=== PATIENT | male | born 1985 | race African-American/Black ===

== ENCOUNTER 2021-11-15 00:54 | Observation (INO) ==
[2021-11-15] MEDS ORDERED: PIPERACILLIN/TAZOBACTAM 3,375 MG in SODIUM CHLORIDE 0.9% 100 ML IV STA (01:13)
[2021-11-15] MEDS ORDERED: MORPHINE 2 MG/1 ML SYRINGE IV PRN (01:15)
[2021-11-15] MEDS ORDERED: ONDANSETRON 4 MG/2 ML VIAL IV PRN (01:15)
[2021-11-15] MEDS: DEXTROSE 5% NACL 0.45% 1,000 ML IV SCH ×3 (03:06→17:46)
[2021-11-15 06:20] LABS: Basophils % 0.2 % (0.0-0.8); Eosinophils # 0.1 10*3/uL (0.0-0.87); Eosinophils % 0.4 % (0.00-10.9); Hematocrit 36.1 VOL% (42.0-52.0); Hemoglobin 12.4 GM/DL (14.0-18.0); Immature Granulocytes % 0.5 %; Immature Granulocytes Absolute 0.08 #; Lymphocytes # 1.7 10*3/uL (1.4-4.0); Lymphocytes % 11.4 % (21.2-54.2); Mean Corpuscular HGB Conc 34.3 GM/DL (32-36); Mean Corpuscular Volume 91.2 FL (87-102); Mean Platelet Volume 9.6 FL (9.6-12.0); Monocytes # 1.1 10*3/uL (0.11-0.8); Monocytes % 7.6 % (1.7-12.7); Neutrophils % 79.9 % (38.7-73.9); Platelet Count 254 T/CUMM (130-400); Red Blood Count 3.96 MC/CUMM (3.8-5.5); Red Cell Distribution Width 13.5 % (9.3-17.3)
[2021-11-15 06:48] LABS: Albumin 3.2 G/DL (3.4-5.0); Bilirubin,Total 1.6 MG/DL (0.20-1.00); Calcium 8.5 MG/DL (8.5-10.1); Osmolality,Calculated 281.3 MOS/KG (273-304); Potassium 3.8 MMOL/L (3.5-5.1); Total Protein 6.1 G/DL (6.4-8.2)
[2021-11-15] MEDS ORDERED: TISSUE ADHESIVE 1 EACH APPLICATOR TOP ONE (08:28)
[2021-11-15] MEDS ORDERED: BUPIVACAINE MPF 0.25% 10 ML VIAL ONE (08:28)
[2021-11-15] MEDS ORDERED: LIDOCAINE 1%/EPI INJ 20 ML VIAL ONE (08:28)
[2021-11-15] MEDS ORDERED: LIDOCAINE 2% 5 ML VIAL ONE (08:34)
[2021-11-15] MEDS ORDERED: ONDANSETRON 4 MG/2 ML VIAL ONE (08:34)
[2021-11-15] MEDS ORDERED: SUCCINYLCHOLINE 200 MG/10 ML VIAL ONE (08:34)
[2021-11-15] MEDS ORDERED: ROCURONIUM 50 MG/5 ML VIAL IV ONE (08:34)
[2021-11-15] MEDS ORDERED: propofoL 200 MG/20 ML VIAL IV ONE (08:34)
[2021-11-15] MEDS ORDERED: KETOROLAC 30 MG/1 ML VIAL ONE (08:34)
[2021-11-15] MEDS ORDERED: ACETAMINOPHEN INJ 1,000 MG/100 ML VIAL IV ONE (08:34)
[2021-11-15] MEDS ORDERED: SEVOFLURANE 1 UNIT/15 MINUTE INH ONE ×3 (08:34→09:17)
[2021-11-15] MEDS ORDERED: MIDAZOLAM 2 MG/2 ML VIAL ONE (08:35)
[2021-11-15] MEDS ORDERED: fentaNYL 100 MCG/2 ML VIAL ONE (08:35)
[2021-11-15] MEDS ORDERED: DEXAMETHASONE 4 MG/1 ML VIAL ONE (08:36)
[2021-11-15] MEDS ORDERED: PANTOPRAZOLE 40 MG VIAL IV SCH (09:00)
[2021-11-15] MEDS ORDERED: PIPERACILLIN/TAZOBACTAM 3,375 MG VIAL IV ONE (09:11)
[2021-11-15] MEDS ORDERED: GLYCOPYRROLATE 0.4 MG/2 ML VIAL ONE (09:18)
[2021-11-15] MEDS ORDERED: NEOSTIGMINE 10 MG/10 ML VIAL ONE (09:18)
[2021-11-15] MEDS ORDERED: SUGAMMADEX 200 MG/2 ML VIAL IV ONE (09:39)
[2021-11-15] MEDS ORDERED: LACTATED RINGERS 1,000 ML IV ONE (09:54)
[2021-11-15] MEDS ORDERED: PIPERACILLIN/TAZOBACTAM 3,375 MG in SODIUM CHLORIDE 0.9% 100 ML IV SCH (10:00)
[2021-11-16] MEDS: DEXTROSE 5% NACL 0.45% 1,000 ML IV SCH ×2 (00:15→08:32)
[2021-11-16 07:22] VITALS: BP 131/90
[2021-11-16] MEDS ORDERED: amLODIPine 5 MG TABLET PO SCH (09:00)
== END 2021-11-16 10:45 | disposition home or self-care (01) ==
LOC: EDSEX → EDBD → EDUNIT# → N.EDINP 00:54 → N.ED 00:54 → N.3E 01:54
PROVIDERS: ADMIT Surgery; ATTEND Surgery